=== PATIENT | female | born 1985 | race Caucasian/White ===

== ENCOUNTER 2017-05-16 22:57 | Emergency (ER) | payer OTHER ==
[~2017-05-16] VITALS: Ht 157.5 cm; Wt 100.0 kg
[2017-05-16 23:09] VITALS: Ht 157.5 cm; Wt 100.0 kg
[2017-05-17] MEDS ORDERED: HYDROCODONE/APAP (10/325) TAB PO ONE (01:00)
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
--- NOTE | 2017-05-17 01:52 | RADRPT ---
PROCEDURE: XR Right Ankle. CLINICAL INDICATION: Pain. TECHNIQUE: Three views of the right ankle were performed. COMPARISON: None. FINDINGS: There is lateral malleolar subcutaneous soft tissue swelling. There is an underlying acute fracture of the distal fibula. There is an old appearing avulsion fracture medial malleolus with incomplete healing. Joint relationships are maintained. Ankle mortise is intact. Bone mineralization is with in normal limits. IMPRESSION: Lateral malleolar subcutaneous soft tissue swelling with underlying distal fibular fracture. Old avu lsion fracture with incomplete healing of the medial malleolus. RPTAT: [facility] .Figueroa Snowden MD, Date Time Electronically viewed and signed by .Figueroa Snowden MD, on 05/17/2017 01:52 .K/
[2017-05-17] MEDS ORDERED: IBUP-1542 PO (02:07)
[2017-05-17] MEDS ORDERED: HYDR-906 PO ×2 (02:07→02:08)
== END 2017-05-17 05:37 | disposition left against medical advice (07) ==
LOC: FTE 22:57
DX: S82.891A Other fracture of right lower leg, initial encounter for closed fracture (principal); V23.4XXA Motorcycle driver injured in collision with car, pick-up truck or van in traffic accident, initial encounter
CPT/HCPCS: 29515; 73610; Z7502; Z7610